=== PATIENT | male | born 1955 | race Caucasian/White ===

== ENCOUNTER 2016-11-02 20:09 | Emergency (ER) | payer OTHER ==
--- NOTE | 2016-11-02 20:57 | EDM.PDOC ---
ED HPI GI/ABDOMINAL - General Chief Complaint: Abdominal Pain Stated Complaint: RT SIDE ABD PAIN Time Seen by Provider: 11/02/16 20:41 Source: Reports: Patient History Limitations: Reports: No limitations - History of Present Illness INITIAL COMMENTS - FREE TEXT/NARRATIVE: Patient presents tonight with complaints of RUQ abdominal pain that started after eating supper tonight. He reports eating tuna, spinach and steak tonight. He developed sharp pain to his RUQ, nausea and reports a scant amount of emesis. He denies fever, chills, anyone else getting ill or poor preparation of tuna. Symptom Onset Date: 11/02/16 Symptom Onset Time: 18:00 Timing/Duration: Reports: Hour(s): Location: RUQ Quality: Reports: stabbing, throbbing Severity: moderate Improves with: Reports: other (Pain has improved since onset without intervention. ) Associated Symptoms: Reports: nausea/vomiting. Denies: chest pain, back pain, shoulder pain, constipation, diarrhea, bloody stools, fever/chills - Related Data Allergies/ADRs: Allergies Allergy/AdvReac Type Severity Reaction Status Date / Time No Known Allergies Allergy Verified 11/02/16 20:25 Home Meds: Home Meds Aspirin 325 mg PO 11/02/16 [History] Simvastatin [Zocor] 11/02/16 [History] Past Medical History Cardiovascular History: Reports: High cholesterol Genitourinary History: Reports: Renal calculus Neurological History: Reports: CVA - Past Surgical History HEENT Surgical History: Reports: Tonsillectomy Musculoskeletal Surgical History: Reports: Arthroscopic knee Social & Family History - Tobacco Use Smoking Status *Q: Never Smoker ED ROS GENERAL - Review of Systems Review Of Systems: See Below Constitutional: Denies: fever, chills, weakness, diaphoresis HEENT: Reports: No symptoms Respiratory: Denies: Shortness of Breath, Wheezing, Cough, Sputum, Hemoptysis Cardiovascular: Denies: Chest pain, Blood pressure problem, Dyspnea on exertion , Edema, Palpitations Endocrine: Reports: no symptoms GI/Abdominal: Reports: Abdominal pain, Nausea, Vomiting, Other (RUQ pain). Denies: Black stool, Bloody stool, Constipation, Diarrhea, Difficulty swallowing , Distension : Denies: discharge, dysuria, flank pain, frequency, hematuria, incontinence, urgency Skin: Denies: cyanosis, jaundice, pallor, diaphoresis, bruising, pruritis, rash , erythema Neurological: Denies: Confusion, Dizziness, Headache Psychiatric: Reports: No symptoms ED EXAM, GI/ABD - Physical Exam Exam: See Below Exam Limited By: No limitations General Appearance: alert, WD/WN, mild distress Eyes: bilateral: normal appearance (Pupils equal and reactive, 3mm ) Ears: normal external exam, normal canal, hearing grossly normal, normal TMs. No: hearing loss Nose: normal inspection, normal mucosa, no blood Throat/Mouth: Normal inspection, Normal lips, Normal teeth, Normal gums, Normal oropharynx, Normal voice, No airway compromise Head: atraumatic, normocephalic Neck: normal inspection, supple, non-tender, full range of motion Respiratory/Chest: no respiratory distress, lungs clear, normal breath sounds, no accessory muscle use, chest non-tender. No: respiratory distress, decreased breath sounds, crackles, rales, rhonchi, wheezing Cardiovascular: normal peripheral pulses, regular rate, rhythm, no edema, no gallop, no murmur, no rub GI/Abdominal: normal bowel sounds, soft, no organomegaly, no distention, no mass , tenderness, Purvis's sign, other (Patient reports passing gas without difficulty and normal bowel movement today. ). No: guarding, rebound, rigidity , McBurney's sign (Male) Exam: No hernia Back Exam: normal inspection, full range of motion Extremities: normal inspection, normal range of motion, non-tender, no pedal edema, normal capillary refill Neurological: alert, oriented, CN II-XII intact, normal cognition, no motor/ sensory deficits Psychiatric: normal affect, normal mood Skin Exam: Warm, Dry, Intact, Normal color, No rash Course - Vital Signs Last Recorded V/S: Last Vital Signs Temp 35.7 C 11/02/16 20:33 Pulse 60 11/02/16 23:56 Resp 20 11/02/16 23:56 BP 161/93 H 11/02/16 23:56 Pulse Ox 96 11/02/16 23:56 - Orders/Labs/Meds Orders: Active Orders 24 hr Category Date Time Status Abdomen Pelvis wo Cont [CT] Stat Exams 11/02/16 22:27 Taken Gallbladder [Abdomen Ltd] [US] Stat Exams 11/02/16 21:28 Taken Sodium Chloride 0.9% [Normal Saline] 1,000 ml Med 11/02/16 22:00 Active IV ASDIRECTED Sodium Chloride 0.9% [Saline Flush] Med 11/02/16 21:07 Active 10 ml FLUSH ASDIRECTED PRN Saline Lock Insert [OM.PC] Routine Oth 11/02/16 21:07 Ordered Medication Orders Sodium Chloride (Normal Saline) 1,000 mls @ 250 mls/hr IV ASDIRECTED MARVA Last Admin: 11/02/16 21:54 Dose: 250 mls/hr Sodium Chloride (Saline Flush) 10 ml FLUSH ASDIRECTED PRN PRN Reason: Keep Vein Open Last Admin: 11/02/16 21:18 Dose: 10 ml Labs: Laboratory Tests 11/02/16 11/02/16 Range/Units 20:50 20:50 WBC 8.6 (4.5-11.0) K/uL RBC 4.33 (4.30-5.90) M/uL Hgb 13.8 (12.0-15.0) g/dL Hct 41.7 (40.0-54.0) % MCV 96 (80-98) fL MCH 32 H (27-31) pg MCHC 33 (32-36) % Plt Count 255 (150-400) K/uL Sodium 141 (140-148) mmol/L Potassium 3.9 (3.6-5.2) mmol/L Chloride 104 (100-108) mmol/L Carbon Dioxide 28 (21-32) mmol/L Anion Gap 8.9 (5.0-14.0) mmol/L BUN 32 H (7-18) mg/dL Creatinine 1.2 (0.8-1.3) mg/dL Est Cr Clr Drug Dosing 58.64 mL/min Estimated GFR (MDRD) > 60 (>60) Glucose 129 H (74-106) mg/dL Calcium 8.0 L (8.5-10.1) mg/dL Total Bilirubin 0.4 (0.2-1.0) mg/dL AST 25 (15-37) U/L ALT 37 (12-78) U/L Alkaline Phosphatase 71 (46-116) U/L C-Reactive Protein 0.09 (0.0-0.3) mg/dL Total Protein 7.2 (6.4-8.2) g/dL Albumin 3.8 (3.4-5.0) g/dL Globulin 3.4 (2.3-3.5) g/dL Albumin/Globulin Ratio 1.1 L (1.2-2.2) Amylase 58 (25-115) U/L Lipase 117 (73-393) U/L Lab work reviewed with patient. US Gallbladder ordered. BUN 32, Creat 1.2, remaining lab work unremarkable. IV normal saline 250ml per hour to 500ml, then rate decreased. Dilaudid prior to ultrasound, current pain 10/07. Meds: Medications Generic Name Dose Route Start Last Admin Trade Name Freq PRN Reason Stop Dose Admin Sodium Chloride 1,000 mls @ 250 mls/hr 11/02/16 22:00 11/02/16 21:54 Normal Saline IV 250 mls/hr ASDIRECTED MARVA Administration Sodium Chloride 10 ml 11/02/16 21:07 11/02/16 21:18 Saline Flush FLUSH 10 ml ASDIRECTED PRN Administration Keep Vein Open Discontinued Medications Generic Name Dose Route Start Last Admin Trade Name Freq PRN Reason Stop Dose Admin Hydromorphone HCl 0.5 mg 11/02/16 21:07 11/02/16 21:18 Dilaudid IVPUSH 11/02/16 21:08 0.5 mg ONETIME ONE Administration Hydromorphone HCl 0.5 mg 11/02/16 21:35 11/02/16 21:51 Dilaudid IVPUSH 11/02/16 21:36 0.5 mg ONETIME ONE Administration Sodium Chloride 250 mls @ 250 mls/hr 11/02/16 21:45 Normal Saline IV ASDIRECTED MARVA Ketorolac Tromethamine 30 mg 11/02/16 23:46 11/02/16 23:54 Toradol IVPUSH 11/02/16 23:47 30 mg ONETIME ONE Administration Ondansetron HCl 4 mg 11/02/16 21:08 11/02/16 21:18 Zofran IVPUSH 11/02/16 21:09 4 mg ONETIME ONE Administration Tamsulosin HCl 0.4 mg 11/02/16 23:46 11/02/16 23:52 Flomax PO 11/02/16 23:47 0.4 mg ONETIME ONE Administration - Radiology Interpretation Free Text/Narrative:: US completed, gastric distention noted, normal gallbladder reported. CT of abdomen without contrast ordered. CT Results Date: 11/02/16 (CT Abdomen and pelvis reports 5x7mm calculus within the middle ureter with associated right-sided hydronephrosis. Additional bilateral intrarenal calculi. Moderate amount of stool. Enlarged prostate. ) - Re-Assessments/Exams Free Text/Narrative Re-Assessment/Exam: 11/02/16 20:55 Patient offered pain medication, he declines at this time. He was reminded to notify nursing staff if pain increases. 11/02/16 21:08 Patient complains of increase in abdominal pain. NSL, dilaudid and zofran ordered. 11/02/16 23:43 Patient reports his pain is much better at this time. CT results reviewed with him and his . All questions answered. Departure - Departure Time of Disposition: 23:50 Disposition: Home, Self-Care 01 Condition: fair Clinical Impression: Renal calculus, Hydronephrosis Instructions: Kidney Stones Referrals: PCP,None [Primary Care Provider] - Forms: ED Department Discharge Additional Instructions: Keep yourself hydrated by drinking plenty of fluids. Follow up with your primary care provider and urology as soon as able for 5.7 mm calculus within middle ureter with associated right-sided hydronephrosis. Make a point to follow up with your primary care provider for your enlarged prostate as well. You may take toradol (NSAID) as directed for pain. You were given toradol IV in the ER on 11/02/16 at 1155pm. Toradol works well for kidney stone pain, do not take this medication along with ibuprofen. [place] 5/325mg PO as directed for uncontrolled pain. You were given tamsulosin 0.4mg by mouth in the ER on 11/02/16. Fill the provided prescription on 11/02/16 and take a dose once filled, then take daily. Report to the nearest emergency room with worsening in pain or symptoms. - My Orders Last 24 Hours: My Active Orders 11/02/16 21:07 Sodium Chloride 0.9% [Saline Flush] 10 ml FLUSH ASDIRECTED PRN Saline Lock Insert [OM.PC] Routine 11/02/16 21:28 Gallbladder [Abdomen Ltd] [US] Stat 11/02/16 22:00 Sodium Chloride 0.9% [Normal Saline] 1,000 ml IV ASDIRECTED 11/02/16 22:27 Abdomen Pelvis wo Cont [CT] Stat - Assessment/Plan Last 24 Hours: My Active Orders 11/02/16 21:07 Sodium Chloride 0.9% [Saline Flush] 10 ml FLUSH ASDIRECTED PRN Saline Lock Insert [OM.PC] Routine 11/02/16 21:28 Gallbladder [Abdomen Ltd] [US] Stat 11/02/16 22:00 Sodium Chloride 0.9% [Normal Saline] 1,000 ml IV ASDIRECTED 11/02/16 22:27 Abdomen Pelvis wo Cont [CT] Stat
[2016-11-02] MEDS ORDERED: HYDROmorphone 0.5 MG/0.5 ML Syringe IVPUSH ONE ×2 (21:07→21:35)
[2016-11-02] MEDS ORDERED: Sodium Chloride 0.9% 10 ML Syringe FLUSH PRN (21:07)
[2016-11-02] MEDS ORDERED: Ondansetron 4 MG/2 ML SDV IVPUSH ONE (21:08)
[2016-11-02] MEDS ORDERED: Sodium Chloride 0.9% 250 ML IV SCH (21:45)
[2016-11-02] MEDS ORDERED: Sodium Chloride 0.9% 1,000 ML IV SCH (22:00)
[2016-11-02] MEDS ORDERED: Tamsulosin 0.4 MG Cap.ER PO ONE (23:46)
[2016-11-02] MEDS ORDERED: Ketorolac 30 MG/ML SDV IVPUSH ONE (23:46)
[2016-11-02 23:57] VITALS: BP 161/93
== END 2016-11-03 00:20 | disposition home or self-care (01) ==
LOC: JP.ED 20:09
DX: N13.2 Hydronephrosis with renal and ureteral calculous obstruction (principal); E78.00 Pure hypercholesterolemia, unspecified; Z79.82 Long term (current) use of aspirin; Z79.899 Other long term (current) drug therapy; Z98.890 Other specified postprocedural states
CPT/HCPCS: 36415; 74176; 76705; 80053; 82150; 83690; 85027; 86140; 96361; 96374; 96375; 99284; A9270; J1170; J1885; J2405; J7050